=== PATIENT | male | born 1965 | race Caucasian/White ===

== ENCOUNTER 2021-03-12 16:37 | Emergency (ER) | payer MEDICAID ==
[~2021-03-12] VITALS: Ht 182.9 cm; Wt 75.0 kg
[2021-03-12] MEDS ORDERED: normal saline 1000ML IV soln IV ONE (16:55)
[2021-03-12] MEDS ORDERED: proCHLORperazine 10 MG/2 ml inj IV ONE (16:55)
[2021-03-12] MEDS ORDERED: morphine 4 MG/ML inj SYRINge IV ONE (16:55)
[2021-03-12] MEDS ORDERED: LORazepam 2 mg/ml vial IV ONE (16:55)
[2021-03-12] MEDS ORDERED: CefTRIAXone 2gm/D5W 50ml BAG 50 ML IV ONE (16:55)
--- NOTE | 2021-03-12 17:29 | NUR ---
CLINICAL PARTNER AT BEDSIDE, ANTIBIOTIC NOT STARTED UNTIL 1ST SET OF BLOOD CX DRAWN
--- NOTE | 2021-03-12 19:13 | NUR ---
ROBERTA FROM LAB CALLED AND SAID BLOOD NEEDS TO BE REDRAWN
[2021-03-12] MEDS ORDERED: aspirin 325mg tablet PO ONE (19:25)
[2021-03-12 19:35] LABS: BASOPHILS # (AUTO) 0.1 X10'3 (0-0.2); BASOPHILS % (AUTO) 0.5 % (0-1); EOSINOPHILS # (AUTO) 0.1 X10'3 (0-0.9); EOSINOPHILS % (AUTO) 0.5 % (0-6); HEMATOCRIT 52.3 % (42.0-52.0); LYMPHOCYTES # (AUTO) 1.6 X10'3 (1.1-4.8); LYMPHOCYTES % (AUTO) 15.2 % (21-51); MEAN CORPUSCULAR HEMOGLOBIN 30.9 PG (27.0-31.0); MEAN CORPUSCULAR VOLUME 88.3 FL (78-98); MEAN PLATELET VOLUME 8.6 FL (7.4-10.4); MONOCYTES # (AUTO) 0.8 X10'3 (0-0.9); MONOCYTES % (AUTO) 7.2 % (2-12); NEUTROPHILS # (AUTO) 8.2 X10'3 (1.8-7.7); NEUTROPHILS % (AUTO) 76.6 % (42-75); PLATELET COUNT 249 X10'3 (140-440); RED BLOOD COUNT 5.92 X10'6 (4.70-6.10); RED CELL DISTRIBUTION WIDTH 14.4 % (11.5-14.5); WHITE BLOOD COUNT 10.7 X10'3 (4.5-11.0)
[2021-03-12 19:40] LABS: HEMOGLOBIN 18.3 g/dl (14.0-17.9)
[2021-03-12 19:45] LABS: ALANINE AMINOTRANSFERASE 22 U/L (12-78); ALBUMIN 4.2 G/DL (3.4-5.0); ALBUMIN/GLOBULIN RATIO 1.1 (1.1-1.5); ALKALINE PHOSPHATASE 95 IU/L (46-116); ANION GAP 12 (8-16); ASPARTATE AMINO TRANSFERASE 16 U/L (10-37); BILIRUBIN,TOTAL 0.8 MG/DL (0.1-1.0); BLOOD UREA NITROGEN 13 MG/DL (7-18); BUN/CREATININE RATIO 14.9 (5.4-32.0); CALCIUM 9.2 MG/DL (8.5-10.1); CHLORIDE 102 MMOL/L (99-107); CREATININE 0.87 MG/DL (0.60-1.10); GLUCOSE 154 MG/DL (70-104); POTASSIUM 3.9 MMOL/L (3.5-5.1); SODIUM 139 MMOL/L (135-145); TOTAL CARBON DIOXIDE 25.3 MMOL/L (24-32); eGFR 90 ML/MIN
[2021-03-12 19:48] LABS: ETHANOL < 0.010 GM/DL (0.0-0.010)
[2021-03-12 19:55] LABS: CLARITY,URINE CLEAR (Clear); GLUCOSE, URINE 500 mg/dl (Neg); KETONES,URINE 40 mg/dl (Neg); LEUKOCYTE ESTERASE ,URINE NEGATIVE (Neg); NITRITES, URINE NEGATIVE (Neg); OCCULT BLOOD,URINE NEGATIVE (Neg); PH,URINE 5.5 (4.8-8.0); PROTEIN,URINE TRACE mg/dl (Neg); UROBILINOGEN,URINE 0.2 E.U/dL (0.2-1.0)
[2021-03-12] MEDS ORDERED: FENTANYL-0.9 % NACL/PF 100 ML IV PRN (19:55)
[2021-03-12] MEDS ORDERED: midazolam 100mg in NS 100ml 100 ML IV PRN (19:55)
--- NOTE | 2021-03-12 19:57 | NUR ---
pt to be intubated. 20mg etomidate and 100mg rocuronium per verbal order by ERP.
[2021-03-12 20:03] LABS: UA COLLECTION TYPE STRAIGHT CATH
[2021-03-12 20:04] LABS: BACTERIA,URINE NONE SEEN /HPF (Neg); COLOR,URINE DARK YELLOW (Yellow); MUCUS STRANDS MODERATE /LPF (Neg); RBC,URINE NONE SEEN /HPF (0-2); SQUAMOUS EPITHELIAL CELL,UR NONE SEEN /LPF (FEW); WBC,URINE 0-4 /HPF (0-4)
--- NOTE | 2021-03-12 20:04 | NUR ---
per RN, covid swab already sent to lab
[2021-03-12] MEDS ORDERED: normal saline 1000ML IV soln IVB ONE (20:05)
[2021-03-12 20:08] LABS: URINE AMPHETAMINE SCREEN POSITIVE (Neg); URINE BARBITUATE SCREEN NEGATIVE (Neg); URINE BENZODIAZEPINES SCREEN NEGATIVE (Neg); URINE CANNABINOID SCREEN POSITIVE (Neg); URINE COCAINE SCREEN NEGATIVE (Neg); URINE METHADONE SCREEN NEGATIVE (Neg); URINE OPIATE SCREEN POSITIVE (Neg); URINE PHENCYCLIDINE SCREEN NEGATIVE (Neg)
[2021-03-12] MEDS ORDERED: NO HOME MEDS (20:09)
--- NOTE | 2021-03-12 20:18 | NUR ---
fentanyl and versed drip pulled from omni and handed off to primary RN
--- NOTE | 2021-03-12 20:23 | NUR ---
time out called at 2023. two meds pushed IV for intubation. RT at bedside.
--- NOTE | 2021-03-12 20:24 | NUR ---
pt intubated, 22 at teeth, size 8.
--- NOTE | 2021-03-12 20:29 | NUR ---
bismark and versed running
--- NOTE | 2021-03-12 20:39 | NUR ---
temp marcano started. secured to leg. xray complete.
[2021-03-12 20:43] LABS: ABG HCO3 24.7 mmol/L (22.0-26.0); ABG PCO2 (T) 49.1 mmHg (35.0-48.0); ABG PO2 (T) 179.4 mmHg (75.0-100.0); ALLEN'S TEST POSITIVE; FCOHb 1.5 % (0.0-3.9); FMetHb 0.2 % (0.0-1.5); FO2Hb 97.3 % (94-97); PEEP 5 cm H2O; RESPIRATORY RATE 12 b/min; TIDAL VOLUME 450 mL; TOTAL HEMOGLOBIN 16.9 G/dl (14.0-18.0)
--- NOTE | 2021-03-12 20:49 | NUR ---
report given to EMS. report given to Filipe at [facility] by Nnamdi DUKE.
--- NOTE | 2021-03-12 20:49 | NUR ---
OG tube established. sounds heard on auscultation.
[2021-03-12] MEDS ORDERED: MANNITOL 12.5 GM/50 ML IV ONE (20:55)
[2021-03-12] MEDS ORDERED: labetalol 20mg/4ml (5mg/ml) syringe IV ONE (21:00)
--- NOTE | 2021-03-12 21:00 | NUR ---
per ERP, hold mannitol and give labetolol
[2021-03-12 21:07] VITALS: BP 149/95
--- NOTE | 2021-03-12 21:59 | NUR ---
CITLALY PARKER RN WAS SENT TO [facility] WITH PT TO MANAGE DRIPS AND ASSIST WITH VENTILATIONS. [facility] DID NOT WANT OUR FENTANYL OR VERSED DRIP. RN RETURNED WITH MEDS AND WE DISPSOED OF THEM IN THE PROPER RECEPTACLE.
== END 2021-03-12 21:10 | disposition short-term general hospital (02) ==
LOC: ER 16:38
DX: I63.9 Cerebral infarction, unspecified (principal); Z20.822 Contact with and (suspected) exposure to COVID-19; R42 Dizziness and giddiness; M54.2 Cervicalgia; R11.2 Nausea with vomiting, unspecified; R53.1 Weakness; R51.9 Headache, unspecified; E11.9 Type 2 diabetes mellitus without complications; F15.90 Other stimulant use, unspecified, uncomplicated; Z98.890 Other specified postprocedural states; Z72.89 Other problems related to lifestyle
CPT/HCPCS: 36415; 36600; 70450; 71045; 80053; 80305; 80320; 81001; 82803; 83605; 84145; 85018; 85025; 86885; 86900; 86901; 87040; 87635; 93005; 94002; 96365; 96366; 96367; 96375; 99291; 99292; C9803; J0696; J0780; J2060; J2270; J7030; 94760; J3010; J3490

== ENCOUNTER 2021-09-04 23:44 | Emergency (ER) | payer MEDICAID ==
[~2021-09-04] VITALS: Ht 182.9 cm; Wt 77.3 kg
[~2021-09-04 23:44] MED LIST: NO HOME MEDS
[2021-09-05 01:53] VITALS: BP 125/84
== END 2021-09-05 01:56 | disposition home or self-care (01) ==
LOC: ER 23:45
DX: S82.891A Other fracture of right lower leg, initial encounter for closed fracture (principal); M25.571 Pain in right ankle and joints of right foot; E11.9 Type 2 diabetes mellitus without complications; F17.200 Nicotine dependence, unspecified, uncomplicated; Z72.89 Other problems related to lifestyle; Z98.890 Other specified postprocedural states; V29.9XXA Motorcycle rider (driver) (passenger) injured in unspecified traffic accident, initial encounter; Y93.89 Activity, other specified; Y92.89 Other specified places as the place of occurrence of the external cause; Y99.8 Other external cause status
CPT/HCPCS: 73610; 99284